=== PATIENT | male | born 1990 | race African-American/Black ===

== ENCOUNTER 2022-08-26 10:02 | Emergency (ER) | payer MEDICAID ==
[~2022-08-26] VITALS: Ht 167.6 cm; Wt 75.0 kg
[2022-08-26] MEDS ORDERED: KETOROLAC 60MG/2ML VIAL IM ONE (12:15)
[2022-08-26 12:22] VITALS: BP 118/75
== END 2022-08-26 13:55 | disposition home or self-care (01) ==
LOC: ER 10:02
DX: M54.30 Sciatica, unspecified side (principal)
CPT/HCPCS: 96372; 99283; J1885